=== PATIENT | female | born 2000 | race Caucasian/White ===

== ENCOUNTER 2023-10-03 11:49 | Emergency (ER) | payer OTHER, SELFPAY ==
[2023-10-03 12:16] LABS: Basophils Percent Auto 0.2 % (0.2-1.2); Hematocrit 42.9 % (37.0-47.0); Hemoglobin 14.1 g/dL (12.0-15.0); Immature Granulocyte Absolute 0.04 K/mm3 (0.00-0.031); Immature Granulocyte Percent A 0.3 % (0-0.5); Lymphocytes Absolute Auto 0.54 K/mm3 (0.9-3.2); Lymphocytes Percent Auto 4.1 % (18.3-44.2); Mean Corpuscular HGB Conc 32.9 g/dl (32-36); Mean Corpuscular Hemoglobin 30.7 pg (26-34); Mean Corpuscular Volume 93.5 fl (80-100); Mean Platelet Volume 9.5 fl (7.4-10.4); Monocytes Absolute Auto 0.4 K/mm3 (0.1-0.6); Monocytes Percent Auto 2.8 % (2.6-8.5); Neutrophils Absolute Auto 12.1 K/mm3 (1.3-6.7); Neutrophils Percent Auto 92.6 % (45.5-73.1); Platelet Count Result 366 k/mm3 (150-375); Red Blood Count 4.59 M/mm3 (4.2-5.4); Red Cell Distribution Width 12.7 % (11.5-14.5); White Blood Count 13.1 K/mm3 (4.5-10.0)
[2023-10-03] MEDS: LACTATED RINGERS 1,000 ML 999 ML IV CONT (12:20)
[2023-10-03] MEDS: ONDANSETRON INJ 4 MG/2 ML VIAL IV PUSH (12:20)
--- NOTE | 2023-10-03 12:22 | ED.NAVMDI ---
HPI - Nausea/Vomiting/Diarrhea General Chief complaint: Nausea/Vomiting/Diarrhea Stated complaint: vomiting since midnight Time Seen by Provider: 10/03/23 12:02 History of Present Illness HPI Narrative: Patient reports having nausea, vomiting, diarrhea that started yesterday, after she had some chicken noodle soup. She has been having trouble keeping anything down. Having abdominal cramping everywhere. No one else sick except for her. Related Data Allergies Allergy/AdvReac Type Severity Reaction Status Date / Time No Known Allergies Allergy Verified 10/03/23 12:08 Review of Systems Review of Systems: CONST: No fever. HEENT: No sore throat C/V: No chest pain RESP: No cough GI: Reports abdominal pain, nausea, vomiting[, diarrhea] : No dysuria. M/S: No joint pain. SKIN: No rash. NEURO: [No headache or focal numbness or weakness] PSYCH: [No depression] Exam Narrative: EXAMINATION OF ORGAN SYSTEMS/BODY AREAS: Constitutional: Vital signs per nursing GENERAL:[No acute distress, non-toxic appearing.] HEAD: Normal with no signs of head trauma. EYES: EOMI, conjunctiva normal ENT: Hearing grossly intact LUNGS: Nonlabored breathing. HEART: [Regular rate and rhythm] ABD: [Soft], [nontender to palpation] EXT: Normal range of motion SKIN: [No rashes or lesions.] NEURO: [Alert and oriented x 3. No gross focal sensory or strength deficits.] PSYCH: Normal affect Course Vital Signs Vital signs: Vital Signs Temperature 97.8 F 10/03/23 12:27 Pulse Rate 89 10/03/23 12:27 Respiratory Rate 18 10/03/23 12:27 Blood Pressure 117/75 10/03/23 12:27 Pulse Oximetry 99 10/03/23 12:27 Temperature 98.2 F 10/03/23 12:27 Pulse Rate 91 10/03/23 12:27 Respiratory Rate 18 10/03/23 12:27 Blood Pressure 120/75 10/03/23 12:27 Pulse Oximetry 100 10/03/23 12:27 MDM - Nausea/Vomiting/Diarrhea MDM Narrative Medical decision making narrative: 22-year-old female presenting with vomiting, diarrhea, on exam she is well appearing, normal vital signs, abdomen is soft without any focal tenderness to palpation, she is given IV fluids, Zofran, loperamide, and on re-evaluation, she is now feeling much better, resting comfortably, no longer nauseous, labs do show elevated white count, and UA consistent with UTI. Antibiotics started here and she is given a course for antibiotics for home, as well as prescriptions for Zofran and loperamide. She is given instruction precautions and follow-up information, patient agreeable to this plan. Lab Data 10/03/23 12:09 10/03/23 12:09 Labs: Lab Results 10/03/23 Range/Units 12:09 WBC 13.1 H (4.5-10.0) K/mm3 RBC 4.59 (4.2-5.4) M/mm3 Hgb 14.1 (12.0-15.0) g/dL Hct 42.9 (37.0-47.0) % MCV 93.5 (80-100) fl MCH 30.7 (26-34) pg MCHC 32.9 (32-36) g/dl RDW 12.7 (11.5-14.5) % Plt Count 366 (150-375) k/mm3 MPV 9.5 (7.4-10.4) fl Immature Gran % (Auto) 0.3 (0-0.5) % Neut % (Auto) 92.6 H (45.5-73.1) % Lymph % (Auto) 4.1 L (18.3-44.2) % Schley % (Auto) 2.8 (2.6-8.5) % Eos % (Auto) 0.0 (0-4.4) % Baso % (Auto) 0.2 (0.2-1.2) % Lymph # (Auto) 0.54 L (0.9-3.2) K/mm3 Schley # (Auto) 0.4 (0.1-0.6) K/mm3 Eos # (Auto) 0.0 (0-0.3) K/mm3 Baso # (Auto) 0.0 (0.0-0.1) K/mm3 Abs Immat Gran (auto) 0.04 H (0.00-0.031) K/mm3 Absolute Neuts (auto) 12.1 H (1.3-6.7) K/mm3 Absolute Nucleated RBC 0.0 (0.0-0.012) K/mm3 Nucleated RBC % 0.0 (0.0-0.2) % Sodium 140 (137-145) mmol/L Potassium 3.5 (3.4-5.0) mmol/L Chloride 106 (98-107) mmol/L Carbon Dioxide 19 L (22-30) mmol/L Anion Gap 15 (8-16) mmol/L BUN 15 (7-17) mg/dL Creatinine 0.70 (0.7-1.0) mg/dL Estim Creat Clear Calc 90 ml/min Estimated GFR > 60 (59 - ) Glucose 121 H (65-110) mg/dL Calcium 9.7 (8.4-10.2) mg/dL Total Bilirubin 1.3 (0.2-1.3) mg/dL AST 22 (14-36) U/L ALT 19 (6-35) U/L [place]
[2023-10-03 12:27] VITALS: BP 117/75; BP 120/75; PULSE 89; PULSE 91; RESP 18; TEMP 36.6; TEMP 36.8; O2SAT 100; O2SAT 99
[2023-10-03] MEDS: LOPERAMIDE HCL 2 MG CAPSULE 4 MG PO (12:30)
[2023-10-03 12:32] LABS: Appearance Urine Cloudy (Clear); Bacteria Urine 4+ /hpf; Bilirubin Urine Negative (Negative); Blood Urine Negative (Negative); Color Urine Dark Yellow (Yellow); Glucose Urine UA Negative (Negative); Hyaline Casts Urine Present /lpf; Ketones Urine 4+ mg/dL (Negative); Leukocyte Esterase Ur 1+ LEU/UL (Negative); Need Manual Microscopic Reviewed; Nitrate Urine Positive (Negative); Protein Urine 1+ mg/dL (Negative); RBC Urine 0-2 /hpf (0-2); Squamous Epithelial Cell Urine Moderate /hpf (Few); WBC Urine 21-50 /hpf; pH Urine 7.5 (5.0-9.0)
[2023-10-03 12:33] LABS: Add Urine Microscopic? YES; Specific Grav Ur 1.037 (1.001-1.035)
[2023-10-03 12:34] LABS: Alanine Aminotransferase 19 U/L (6-35); Albumin Level 4.8 g/dL (3.5-5.1); Alkaline Phosphatase 88 U/L (38-126); Anion Gap 15 mmol/L (8-16); Aspartate Amino Transferase 22 U/L (14-36); Bilirubin,Total 1.3 mg/dL (0.2-1.3); Blood Urea Nitrogen 15 mg/dL (7-17); Calcium 9.7 mg/dL (8.4-10.2); Carbon Dioxide 19 mmol/L (22-30); Chloride 106 mmol/L (98-107); Estimated CRCL calculation 90 ml/min; Estimated Glomerular Filt Rate > 60; Glucose 121 mg/dL (65-110); Lipase 34 U/L (23-300); Potassium 3.5 mmol/L (3.4-5.0); Sodium 140 mmol/L (137-145)
[2023-10-03 12:52] LABS: Influenza A QL RT-PCR Negative (Negative); Influenza B QL RT-PCR Negative (Negative); RSV RNA, RT-PCR Negative (Negative); SARS-CoV-2 RNA PCR Negative (Negative)
== END 2023-10-03 13:38 | disposition home or self-care (01) ==
PROVIDERS: Emergency Medicine; Emergency Provider Emergency Medicine
DX: N39.0 Urinary tract infection, site not specified (principal); R11.2 Nausea with vomiting, unspecified; Z20.822 Contact with and (suspected) exposure to COVID-19; R19.7 Diarrhea, unspecified
CPT/HCPCS: 36415; 80053; 81001; 81025; 83690; 85025; 87077; 87086; 87088; 87186; 87637; 96361; 96365; 96375; 99284; A9270; J0696; J2405; J7120